=== PATIENT | male | born 1960 | race Caucasian/White ===

== ENCOUNTER 2020-07-14 10:34 | Emergency (ER) | payer OTHER, SELFPAY ==
[~2020-07-14] VITALS: Ht 180.3 cm; Wt 94.3 kg
[2020-07-14 10:56] VITALS: Ht 180.3 cm; Wt 94.3 kg
[2020-07-14 12:26] LABS: PLATELET COUNT 255 x10^3mcL (130-400)
[2020-07-14 12:36] LABS: CALCIUM 8.7 mg/dL (8.5-10.1); CARBON DIOXIDE 24.8 mmol/L (21-32); CHLORIDE SERUM 104 mmol/L (98-107); CREATININE SERUM 0.8 mg/dL (0.7-1.3); GFR1 > 60 mL/min; GLUCOSE SERUM 88 mg/dL (74-106); POTASSIUM SERUM 3.8 mmol/L (3.5-5.1); SODIUM SERUM 138 mmol/L (136-145)
[2020-07-14 12:42] LABS: ALBUMIN 3.7 g/dL (3.4-5.0); ALKALINE PHOSPHATASE 68 U/L (46-116); ALT/SGPT 29 U/L (16-63); AST/SGOT 20 U/L (15-37); BILIRUBIN TOTAL 0.9 mg/dL (0.20-1.00); TOTAL PROTEIN, SERUM 6.9 g/dL (6.4-8.2)
[2020-07-14 13:45] VITALS: BP 154/106
== END 2020-07-14 13:45 | disposition home or self-care (01) ==
LOC: ED 10:34
PROVIDERS: Emergency Medicine
DX: B34.9 Viral infection, unspecified (principal); Z20.828 Contact with and (suspected) exposure to other viral communicable diseases
CPT/HCPCS: U0003-CS